=== PATIENT | male | born 1940 ===

== ENCOUNTER 2017-08-29 04:14 | Outpatient (CLI) | payer MEDICARE | END 2017-08-29 23:59 | disposition home or self-care (01) | LOC: DIABETIC 04:14 | PROVIDERS: ATTEND Internal Medicine | DX: E11.65 Type 2 diabetes mellitus with hyperglycemia (principal); Z79.899 Other long term (current) drug therapy | CPT/HCPCS: G0108 ==

== ENCOUNTER 2018-04-02 00:39 | Outpatient (CLI) | payer MEDICARE | END 2018-04-02 23:59 | disposition home or self-care (01) | LOC: DIABETIC 00:39 | PROVIDERS: ATTEND Internal Medicine | DX: E11.65 Type 2 diabetes mellitus with hyperglycemia (principal); Z79.84 Long term (current) use of oral hypoglycemic drugs | CPT/HCPCS: G0108 ==

== ENCOUNTER 2018-07-09 03:30 | Outpatient (CLI) | payer MEDICARE | END 2018-07-09 23:59 | disposition home or self-care (01) | LOC: DIABETIC 03:30 | PROVIDERS: ATTEND Internal Medicine | DX: E11.65 Type 2 diabetes mellitus with hyperglycemia (principal); Z79.84 Long term (current) use of oral hypoglycemic drugs; Z79.899 Other long term (current) drug therapy | CPT/HCPCS: G0108 ==

== ENCOUNTER 2018-10-08 02:37 | Outpatient (CLI) | payer MEDICARE | END 2018-10-08 23:59 | disposition home or self-care (01) | LOC: DIABETIC 02:37 | PROVIDERS: ATTEND Internal Medicine | DX: E11.9 Type 2 diabetes mellitus without complications (principal); Z79.84 Long term (current) use of oral hypoglycemic drugs; Z79.899 Other long term (current) drug therapy | CPT/HCPCS: G0108 ==